=== PATIENT | female | born 1955 | race Caucasian/White ===

== ENCOUNTER → 2023-05-29 15:31 | Outpatient (REF) | payer MEDICARE, OTHER, SELFPAY | LOC: RAD 15:31 | PROVIDERS: ATTENDING PHYSICIAN Internal Medicine; FAMILY PHYSICIAN Nurse Practitioner Family | DX: K50.00 Crohn's disease of small intestine without complications (principal) | CPT/HCPCS: 74019 ==

== ENCOUNTER → 2023-07-15 06:31 | Day surgery (SDC) | payer MEDICARE, OTHER, SELFPAY | LOC: GI 06:31 | PROVIDERS: ATTENDING PHYSICIAN Internal Medicine | DX: D64.9 Anemia, unspecified (principal); K44.9 Diaphragmatic hernia without obstruction or gangrene; K31.89 Other diseases of stomach and duodenum; K21.00 Gastro-esophageal reflux disease with esophagitis, without bleeding; K29.50 Unspecified chronic gastritis without bleeding | CPT/HCPCS: 43239; 88305; 88342 ==

== ENCOUNTER → 2023-08-20 09:24 | Outpatient (REF) | payer MEDICARE, OTHER, SELFPAY ==
[2023-08-20 09:45] VITALS: BP 132/78; BP_SYST 89
[2023-08-20 09:46] LABS: % Basophils 0.5 % (0-2); % Eosinophils 1.3 % (0-6); % Immature Granulocytes 0.3 % (0-0.5); % Lymphocytes 22.1 % (20.5-51.1); % Monocytes 8.4 % (1.7-9.3); % Neutrophils 67.4 % (42.2-75.2); Absolute Basophils 0.1 10^3/uL (0-0.2); Absolute Eosinophils 0.1 10^3/uL (0-0.7); Absolute Lymphocytes 2.3 10^3/uL (1.2-3.4); Absolute Monocytes 0.9 10^3/uL (0.1-0.6); Absolute Neutrophils 7.2 10^3/uL (1.4-6.5); Hematocrit 34.6 % (37.0-47.0); Mean Corp Hgb Conc. 31.8 g/dL (33.0-37.0); Mean Corpuscular Hgb 31.3 pg (27.0-31.0); Mean Corpuscular Volume 98.3 fL (81.0-99.0); Mean Platelet Volume 8.7 fL (7.4-10.4); Nucleated Red Blood Cells % 0 %; Platelet Count 233 10^3/uL (130-400); Red Blood Cell Count 3.52 10^6/uL (4.20-5.40); Red Cell Dist. Width 13.7 % (11.5-14.5); White Blood Cell Count 10.6 10^3/uL (4.8-10.8)
[2023-08-20 09:59] LABS: INR 1.01; PT 13.1 Sec (11.4-14.6)
[2023-08-20] MEDS: NSS (PRESERVATIVE FREE) 0.25 ML IV (10:35)
[2023-08-20 11:10] VITALS: BP 123/93; BP_SYST 86
[2023-08-20] MEDS: ATIVAN 0.5 MG IV (11:14)
[2023-08-20 11:25] VITALS: BP 112/74; BP_SYST 88
== END ==
LOC: RADI 09:24
PROVIDERS: ATTENDING PHYSICIAN Internal Medicine Hematology & Oncology; FAMILY PHYSICIAN Nurse Practitioner Family
DX: D53.9 Nutritional anemia, unspecified (principal); R79.89 Other specified abnormal findings of blood chemistry; R61 Generalized hyperhidrosis; D68.8 Other specified coagulation defects
CPT/HCPCS: 88305; 88311; 88312; 36415; 38222; 77012; 85025; 85610; 88313

== ENCOUNTER → 2023-09-09 11:27 | Outpatient (REF) | payer MEDICARE, OTHER, SELFPAY | LOC: RAD 11:27 | PROVIDERS: ATTENDING PHYSICIAN Internal Medicine Hematology & Oncology; FAMILY PHYSICIAN Nurse Practitioner Family | DX: D53.9 Nutritional anemia, unspecified (principal); D64.9 Anemia, unspecified; E79.89 Other specified disorders of purine and pyrimidine metabolism; R61 Generalized hyperhidrosis | CPT/HCPCS: 70491; 71260; 74177; Q9967 ==

== ENCOUNTER → 2023-10-29 15:10 | Outpatient (REF) | payer MEDICARE, OTHER, SELFPAY | LOC: WDC 15:10 | PROVIDERS: ATTENDING PHYSICIAN Obstetrics & Gynecology; FAMILY PHYSICIAN Nurse Practitioner Family | DX: Z12.31 Encounter for screening mammogram for malignant neoplasm of breast (principal) | CPT/HCPCS: 77063; 77067 ==

== ENCOUNTER → 2024-01-20 14:55 | Outpatient (REF) | payer MEDICARE, OTHER, SELFPAY | LOC: RAD 14:55 | PROVIDERS: ATTENDING PHYSICIAN Internal Medicine; FAMILY PHYSICIAN Nurse Practitioner Family | DX: M81.0 Age-related osteoporosis without current pathological fracture (principal); Z51.81 Encounter for therapeutic drug level monitoring | CPT/HCPCS: 77080; 77081 ==

== ENCOUNTER 2024-07-08 06:28 | Day surgery (SDC) | payer MEDICARE, OTHER, SELFPAY | END 2024-07-08 12:17 | disposition home or self-care (01) | LOC: GI 06:28 | PROVIDERS: ATTENDING PHYSICIAN Internal Medicine | DX: K50.00 Crohn's disease of small intestine without complications (principal); D12.5 Benign neoplasm of sigmoid colon; K63.5 Polyp of colon; K63.89 Other specified diseases of intestine; K63.3 Ulcer of intestine; K64.9 Unspecified hemorrhoids; Z98.0 Intestinal bypass and anastomosis status; Z98.890 Other specified postprocedural states | CPT/HCPCS: 45380; 88305 ==

== ENCOUNTER → 2024-07-19 16:22 | Outpatient (REF) | payer MEDICARE, OTHER, SELFPAY ==
[2024-07-19 17:02] LABS: ALT (SGPT) 21 U/L (0-35); AST (SGOT) 21 U/L (14-36); Albumin 4.7 g/dl (3.5-5.0); Alkaline Phosphatase 53 U/L (38-126); Blood Urea Nitrogen 13 mg/dl (7-17); Calcium 10.3 mg/dl (8.4-10.2); Carbon Dioxide 27 mmol/L (22-30); Chloride 99 mmol/L (98-107); Glucose 125 mg/dl (70-99); Potassium 4.4 mmol/L (3.5-5.1); Sodium 137 mmol/L (135-145); Total Bilirubin 0.4 mg/dl (0.2-1.3); Total Protein 7.6 g/dl (6.3-8.2); eGFR > 60.00
== END ==
LOC: REG 16:22
PROVIDERS: ATTENDING PHYSICIAN Internal Medicine; FAMILY PHYSICIAN Nurse Practitioner Family
DX: M81.0 Age-related osteoporosis without current pathological fracture (principal); Z51.81 Encounter for therapeutic drug level monitoring; Z79.899 Other long term (current) drug therapy
CPT/HCPCS: 36415; 80053

== ENCOUNTER → 2024-08-02 15:36 | Outpatient (REF) | payer MEDICARE, OTHER, SELFPAY | LOC: RAD 15:36 | PROVIDERS: ATTENDING PHYSICIAN Nurse Practitioner Family | DX: R06.2 Wheezing (principal) | CPT/HCPCS: 71046 ==

== ENCOUNTER → 2024-09-08 16:18 | Outpatient (REF) | payer MEDICARE, OTHER, SELFPAY ==
[2024-09-08 17:05] LABS: Ionized Calcium 1.29 mMOL/L (1.15-1.33)
[2024-09-08 17:13] LABS: Hematocrit 36.4 % (37.0-47.0); Hemoglobin 12.4 g/dL (12.0-16.0); Mean Corp Hgb Conc. 34.1 g/dL (33.0-37.0); Mean Corpuscular Hgb 31.3 pg (27.0-31.0); Mean Corpuscular Volume 91.9 fL (81.0-99.0); Mean Platelet Volume 8.9 fL (7.4-10.4); Platelet Count 249 10^3/uL (130-400); Red Blood Cell Count 3.96 10^6/uL (4.20-5.40); Red Cell Dist. Width 14.6 % (11.5-14.5); White Blood Cell Count 11.9 10^3/uL (4.8-10.8)
[2024-09-08 17:33] LABS: ALT (SGPT) 18 U/L (0-35); AST (SGOT) 19 U/L (14-36); Albumin 4.7 g/dl (3.5-5.0); Alkaline Phosphatase 57 U/L (38-126); Blood Urea Nitrogen 12 mg/dl (7-17); Calcium 10.3 mg/dl (8.4-10.2); Carbon Dioxide 25 mmol/L (22-30); Chloride 106 mmol/L (98-107); Glucose 126 mg/dl (70-99); Potassium 4.5 mmol/L (3.5-5.1); Sodium 139 mmol/L (135-145); Total Bilirubin 0.3 mg/dl (0.2-1.3); Total Protein 7.6 g/dl (6.3-8.2); eGFR > 60.00
[2024-09-08 17:44] LABS: Intact PTH 95.7 pg/ml (13.6-85.8)
[2024-09-08 17:50] LABS: Vitamin D, 25-OH*** 39.5 ng/mL (30-80)
[2024-09-08 18:08] LABS: Ferritin 37.3 ng/ml (11.1-264.0)
[2024-09-08 18:58] LABS: Vitamin B12 292 pg/ml (239-931)
[2024-09-09 18:37] LABS: Hepatitis B Surface Antigen Negative (Negative)
[2024-09-09 18:55] LABS: Hepatitis B Core Ab, Total Negative (Negative); Hepatitis B Surface Antibody Negative
== END ==
LOC: REG 16:18
PROVIDERS: ATTENDING PHYSICIAN Internal Medicine; FAMILY PHYSICIAN Nurse Practitioner Family
DX: K50.00 Crohn's disease of small intestine without complications (principal); E03.9 Hypothyroidism, unspecified; D64.9 Anemia, unspecified; E83.52 Hypercalcemia; R06.2 Wheezing
CPT/HCPCS: 36415; 80053; 82306; 82330; 82607; 82728; 83970; 84443; 85027; 86704; 86706; 87340

== ENCOUNTER → 2024-09-22 16:42 | Outpatient (REF) | payer MEDICARE, OTHER, SELFPAY ==
[2024-09-22 17:27] LABS: 24 Hour Urine Total Volume 2400 ml
== END ==
LOC: REG 16:42
PROVIDERS: ATTENDING PHYSICIAN Nurse Practitioner Family; OTHER PHYSICIAN Internal Medicine
DX: R79.89 Other specified abnormal findings of blood chemistry (principal)
CPT/HCPCS: 81050; 82340

== ENCOUNTER → 2024-09-27 15:51 | Outpatient (REF) | payer MEDICARE, OTHER, SELFPAY | LOC: RCS 15:51 | PROVIDERS: ATTENDING PHYSICIAN Nurse Practitioner Family | DX: R07.89 Other chest pain (principal) | CPT/HCPCS: 93306 ==

== ENCOUNTER → 2024-10-07 08:45 | Outpatient (REF) | payer MEDICARE, OTHER, SELFPAY | LOC: RAD 08:45 | PROVIDERS: ATTENDING PHYSICIAN Nurse Practitioner Family | DX: R79.89 Other specified abnormal findings of blood chemistry (principal); E03.9 Hypothyroidism, unspecified | CPT/HCPCS: 76536; 78071; A9500 ==

== ENCOUNTER → 2024-10-29 12:21 | Outpatient (REF) | payer MEDICARE, OTHER, SELFPAY | LOC: HWRCS 12:21 | PROVIDERS: ATTENDING PHYSICIAN Student in an Organized Health Care Education/Training Program; FAMILY PHYSICIAN Nurse Practitioner Family | DX: E78.5 Hyperlipidemia, unspecified (principal); R07.9 Chest pain, unspecified | CPT/HCPCS: 78452; 93017; A9500; J2785 ==

== ENCOUNTER → 2024-12-17 15:40 | Outpatient (REF) | payer MEDICARE, OTHER, SELFPAY ==
[2024-12-17 16:47] LABS: Hematocrit 36.4 % (37.0-47.0); Hemoglobin 12.4 g/dL (12.0-16.0); Mean Corp Hgb Conc. 34.1 g/dL (33.0-37.0); Mean Corpuscular Volume 94.8 fL (81.0-99.0); Platelet Count 190 10^3/uL (130-400); Red Cell Dist. Width 12.9 % (11.5-14.5)
[2024-12-17 17:10] LABS: ALT (SGPT) 27 U/L (0-35); AST (SGOT) 30 U/L (14-36); Albumin 4.4 g/dl (3.5-5.0); Alkaline Phosphatase 54 U/L (38-126); Blood Urea Nitrogen 7 mg/dl (7-17); Calcium 9.8 mg/dl (8.4-10.2); Carbon Dioxide 28 mmol/L (22-30); Chloride 102 mmol/L (98-107); Glucose 105 mg/dl (70-99); HDL Cholesterol 93 mg/dl; LDL Cholesterol, Calculated 33 mg/dl; Potassium 4.3 mmol/L (3.5-5.1); Sodium 135 mmol/L (135-145); Total Protein 7.2 g/dl (6.3-8.2); Very Low Density Lipoprotein 52 mg/dl (0-30); eGFR > 60.00
[2024-12-17 17:59] LABS: Vitamin B12 898 pg/ml (239-931)
== END ==
LOC: REG 15:40
PROVIDERS: ATTENDING PHYSICIAN Internal Medicine; FAMILY PHYSICIAN Nurse Practitioner Family; OTHER PHYSICIAN Physician Assistant
DX: E53.8 Deficiency of other specified B group vitamins (principal); K50.00 Crohn's disease of small intestine without complications; E78.5 Hyperlipidemia, unspecified; I10 Essential (primary) hypertension; R94.4 Abnormal results of kidney function studies; Z51.81 Encounter for therapeutic drug level monitoring
CPT/HCPCS: 36415; 80053; 80061; 82607; 85027

== ENCOUNTER → 2025-01-17 16:38 | Outpatient (REF) | payer MEDICARE, OTHER, SELFPAY | LOC: REG 16:38 | PROVIDERS: ATTENDING PHYSICIAN Internal Medicine; FAMILY PHYSICIAN Nurse Practitioner Family | DX: K50.00 Crohn's disease of small intestine without complications (principal) | CPT/HCPCS: 83993 ==

== ENCOUNTER → 2025-02-15 14:50 | Outpatient (REF) | payer MEDICARE, OTHER, SELFPAY | LOC: RCS 14:50 | PROVIDERS: ATTENDING PHYSICIAN Student in an Organized Health Care Education/Training Program; FAMILY PHYSICIAN Nurse Practitioner Family | DX: I31.39 Other pericardial effusion (noninflammatory) (principal) | CPT/HCPCS: 93306 ==

== ENCOUNTER → 2025-02-28 20:08 | Outpatient (REF) | payer MEDICARE, OTHER, SELFPAY | LOC: PAVMRI 20:08 | PROVIDERS: ATTENDING PHYSICIAN Psychiatry & Neurology Neurology; FAMILY PHYSICIAN Nurse Practitioner Family | DX: M54.12 Radiculopathy, cervical region (principal); R51.9 Headache, unspecified | CPT/HCPCS: 70551; 72141 ==

== ENCOUNTER → 2025-03-15 17:09 | Outpatient (REF) | payer MEDICARE, OTHER, SELFPAY ==
[2025-03-15 18:01] LABS: C-Reactive Protein < 5.00 mg/L (0.0-10.00)
== END ==
LOC: REG 17:09
PROVIDERS: ATTENDING PHYSICIAN Psychiatry & Neurology Neurology; FAMILY PHYSICIAN Nurse Practitioner Family
DX: R79.82 Elevated C-reactive protein (CRP) (principal); R70.0 Elevated erythrocyte sedimentation rate
CPT/HCPCS: 36415; 85652; 86140